=== PATIENT | female | born 1975 | race Caucasian/White ===

== ENCOUNTER 2017-08-30 13:27 | Emergency (ER) | payer OTHER ==
[2017-08-30 13:44] VITALS: BP 141/87; TEMP 98.5
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
[2017-08-30 15:11] VITALS: O2SAT 98
== END 2017-08-30 15:11 | disposition home or self-care (01) ==
LOC: ER 13:27
DX: S16.1XXA Strain of muscle, fascia and tendon at neck level, initial encounter (principal); I10 Essential (primary) hypertension; V43.52XA Car driver injured in collision with other type car in traffic accident, initial encounter; Y92.524 Gas station as the place of occurrence of the external cause

== ENCOUNTER 2018-05-27 17:25 | Emergency (ER) | payer SELFPAY ==
[2018-05-27] MEDS ORDERED: BENZONATATE PERLES 100 MG CAP PO ONE (18:25)
--- NOTE | 2018-05-27 18:30 | RAD ---
EXAM:Chest,2 Views CLINICAL INDICATION: Shortness of breath COMPARISON: There is no previous study for comparison. FINDINGS:Two views of the chest were obtained. The heart size is normal. The pulmonary vascularity is unremarkable. The lungs are clear. There is no consolidation, infiltrate, pleural effusion, or pneumothorax. IMPRESSION: No evidence of active pulmonary disease. Electronically signed by: Lyndon Avila MD 05/27/2018 6:28 PM [facility]
[2018-05-27] MEDS ORDERED: AMOXICILLIN & POT CLAVULANATE 875 MG TAB PO ONE (18:37)
[2018-05-27 18:43] VITALS: BP 126/85; TEMP 100.3; O2SAT 98
[2018-05-27] MEDS ORDERED: predniSONE 20 MG TAB PO ONE (19:06)
--- NOTE | 2018-05-27 19:09 | ED.PDOC ---
History of Present Illness - General Chief Complaint: General Stated Complaint: sore throat Time Seen by Provider: 05/27/18 17:45 Source: patient Exam Limitations: no limitations - History of Present Illness Initial Comments: Patient presents with fever, cough, and sore throat for 5 days. She is on Tamiflu for influenza A and B. She said that her throat has become increasingly sore and swollen. She has had bleeding from her throat and thinks she may have seen some blood in her urine. Cough is intermittent and occasionally productive of clear sputum. No other complaints. Timing/Duration: other - 5 days Severity: moderate Improving Factors: nothing Worsening Factors: eating Associated Symptoms: other - as in HPI Allergies/Adverse Reactions: Allergies Codeine Allergy (Verified 05/27/18 17:33) Home Medications: Ambulatory Orders Amoxicillin & Pot Clavulanate [Augmentin Tab] 875 mg PO BID #13 tab 05/27/18 Benzonatate Perles [Tessalon Perles] 100 mg PO Q6HRS PRN #20 cap 05/27/18 Metoprolol Succinate [Toprol Xl] 50 mg PO DAILY 05/27/18 Oseltamivir Capsule [Tamiflu] 75 mg PO BID 05/27/18 Prednisone [Deltasone] 20 mg PO DAILY #4 tab 05/27/18 Review of Systems - Review of Systems Constitutional: States: see HPI EENTM: States: see HPI Respiratory: States: see HPI Cardiology: States: no symptoms reported Gastrointestinal/Abdominal: States: no symptoms reported Genitourinary: States: no symptoms reported Musculoskeletal: States: no symptoms reported Skin: States: no symptoms reported Neurological: States: no symptoms reported Endocrine: States: no symptoms reported Hematologic/Lymphatic: States: no symptoms reported Past Medical History (General) - Patient Medical History Hx Stroke: No Hx Asthma: No Hx Congestive Heart Failure: No Hx Hypertension: Yes Hx Diabetes: No Surgical History: appendectomy, other - Vaccination History Hx Influenza Vaccination: Yes - 2016 Hx Pneumococcal Vaccination: Yes - 2014 - Social History Hx Tobacco Use: No - Female History Patient : No Family Medical History - Family History Mother Living Status: Age at (years of age): 42 Cause of : Overdose Physical Exam - Physical Exam General Appearance: Alert Eye Exam: bilateral normal Ears, Nose, Throat: pharyngeal erythema - The uvula is blood colored and the op is severely erythmatic. Neck: non-tender, full range of motion, supple, lymphadenopathy (L) Respiratory: lungs clear, normal breath sounds Cardiovascular/Chest: normal peripheral pulses, regular rate, rhythm Gastrointestinal/Abdominal: normal bowel sounds, non tender, soft Skin Exam: normal color Progress - Progress Progress: 05/27/18 19:10 Rapid strep negative. CXR unremarkable. UA showed bacteria, probably a contaminant. Patient given benzotanate 200 mg po x one, Augmentin 875 mg po x one, and prednisone 20 mg po x one in the E.D. RX for Augmentin, benzotanate, and prednisone given. Care instructions given. E.R. warnings given. Questions w ere elicited and answered. Patient voiced understanding and agreement with the plan. Departure - Departure Clinical Impression: Influenza, Sore throat and laryngitis Disposition: Discharge to Home or Self Care Condition: Good Departure Forms: ED Discharge - Pt. Copy, Patient Portal Self Enrollment Diet: resume usual diet Activity: increase activity as tolerated Referrals: MAXIMINO COSBY [Primary Care Provider] - 1-2 Weeks Prescriptions: Benzonatate Perles [Tessalon Perles] 100 mg PO Q6HRS PRN #20 cap PRN Reason: Cough Amoxicillin & Pot Clavulanate [Augmentin Tab] 875 mg PO BID #13 tab Prednisone [Deltasone] 20 mg PO DAILY #4 tab Home Medications: Ambulatory Orders Amoxicillin & Pot Clavulanate [Augmentin Tab] 875 mg PO BID #13 tab 05/27/18 Benzonatate Perles [Tessalon Perles] 100 mg PO Q6HRS PRN #20 cap 05/27/18 Metoprolol Succinate [Toprol Xl] 50 mg PO DAILY 05/27/18 Oseltamivir Capsule [Tamiflu] 75 mg PO BID 05/27/18 Prednisone [Deltasone] 20 mg PO DAILY #4 tab 05/27/18 Additional Instructions: Increase oral fluids. Take medications as prescribed. Tylenol for pain or fever control. Return to the E.R. or your primary doctor if symptoms worsen.
[2018-05-27] MEDS ORDERED: LIDOCAINE HCL 2% (MOUTH-THROAT) 15 ML UD ONE (19:19)
[2018-05-27] MEDS ORDERED: LIDOCAINE HCL 2% (MOUTH-THROAT) 15 ML UD MT ONE (19:20)
== END 2018-05-27 19:25 | disposition home or self-care (01) ==
LOC: ER 17:25
DX: J11.1 Influenza due to unidentified influenza virus with other respiratory manifestations (principal); J02.9 Acute pharyngitis, unspecified; J04.0 Acute laryngitis; I10 Essential (primary) hypertension; Z88.5 Allergy status to narcotic agent
CPT/HCPCS: 71046; 81001; 87070; 87880; J7512

== ENCOUNTER 2018-05-29 00:19 | Emergency (ER) | payer SELFPAY ==
[2018-05-29 00:53] VITALS: TEMP 98; O2SAT 98
[2018-05-29] MEDS ORDERED: IPRATROPIUM/ALBUTEROL 3 ML VIAL NEB ONE (00:55)
--- NOTE | 2018-05-29 01:01 | ED.PDOC ---
History of Present Illness - General Chief Complaint: Respiratory Problem Stated Complaint: feeling short of breath, has flu Time Seen by Provider: 05/29/18 00:27 Source: patient Exam Limitations: no limitations - History of Present Illness Comments: Miguelina Farah 42 y/o female with flu and upper respiratory symptoms stated that she feels SOB during coughing episodes the last 2 days.She had been on tamiflu,tessalon, prednisone and Augmentin.CXR -no acute findings on her last visit 1 1/2 days ago.Has history of HTN on medications. Timing/Duration: constant, other - 3 days ago Cough Quality/Degree: dry cough Possible Cause: other - see hpi Worsening Factors: nothing Associated Symptoms: shortness of breath Respiratory Risk Factors: exposure to illness, other - see hpi Allergies/Adverse Reactions: Allergies Codeine Allergy (Verified 05/27/18 17:33) Home Medications: Ambulatory Orders Amoxicillin & Pot Clavulanate [Augmentin Tab] 875 mg PO BID #13 tab 05/27/18 Benzonatate Perles [Tessalon Perles] 100 mg PO Q6HRS PRN #20 cap 05/27/18 Metoprolol Succinate [Toprol Xl] 50 mg PO DAILY 05/27/18 Oseltamivir Capsule [Tamiflu] 75 mg PO BID 05/27/18 Prednisone [Deltasone] 20 mg PO DAILY #4 tab 05/27/18 Albuterol Inhaler [Ventolin Hfa Inhaler] 108 mcg IN Q4HR PRN #1 inh 05/29/18 Review of Systems - Review of Systems EENTM: States: see HPI, nose congestion Respiratory: States: see HPI, cough Genitourinary: States: see HPI, dysuria Musculoskeletal: States: no symptoms reported Skin: States: no symptoms reported All other Systems: Reviewed and Negative, No Change from Baseline Past Medical History (General) - Patient Medical History Hx Stroke: No Hx Asthma: No Hx Congestive Heart Failure: No Hx Hypertension: Yes Hx Diabetes: No Surgical History: appendectomy, tonsillectomy, other - BTL - Vaccination History Hx Influenza Vaccination: Yes - 2016 Hx Pneumococcal Vaccination: Yes - 2014 - Social History Hx Tobacco Use: No - Female History Patient : No Family Medical History - Family History Mother Living Status: Age at (years of age): 42 Cause of : Overdose Hx Family Hypertension: Yes - dad Hx Family Diabetes: Yes - several family members Hx Family Cancer: Yes - liver Physical Exam - Physical Exam General Appearance: Alert, Anxious, Comfortable, No apparent distress Eye Exam: bilateral normal ENT Exam: normal ENT inspection, hearing grossly normal, TMs normal, pharynx normal, nasal congestion Neck: supple, normal inspection, trachea midline Respiratory: lungs clear, no respiratory distress, no accessory muscle use, wheezing - mild Cardiovascular/Chest: normal peripheral pulses, regular rate, rhythm, no murmur Gastrointestinal/Abdominal: non tender, soft, no organomegaly Extremity: no pedal edema, no calf tenderness Neurologic: alert, oriented x 3 Skin Exam: normal color, warm/dry Progress - Progress Progress: 05/29/18 01:22 Vital Signs - 8 hr 05/29/18 00:46 Temperature 98.0 F Pulse Rate [ 111 H left] Respiratory 18 Rate Blood Pressure 156/99 [left] O2 Sat by Pulse 98 Oximetry - EKG/XRAY/CT XRAY: chest - no acute findings Departure - Departure Clinical Impression: Influenza with upper respiratory symptoms, Reactive airway disease that is not asthma Time of Disposition: 01:30 Disposition: Discharge to Home or Self Care Condition: Fair Departure Forms: ED Discharge - Pt. Copy, Patient Portal Self Enrollment Referrals: MAXIMINO COSBY [Primary Care Provider] - 1-2 Weeks Prescriptions: RX: Albuterol Inhaler [Ventolin Hfa Inhaler] 108 mcg IN Q4HR PRN #1 inh PRN Reason: Shortness Of Breath/Wheezing Home Medications: Ambulatory Orders Amoxicillin & Pot Clavulanate [Augmentin Tab] 875 mg PO BID #13 tab 05/27/18 Benzonatate Perles [Tessalon Perles] 100 mg PO Q6HRS PRN #20 cap 05/27/18 Metoprolol Succinate [Toprol Xl] 50 mg PO DAILY 05/27/18 Oseltamivir Capsule [Tamiflu] 75 mg PO BID 05/27/18 Prednisone [Deltasone] 20 mg PO DAILY #4 tab 05/27/18 Albuterol Inhaler [Ventolin Hfa Inhaler] 108 mcg IN Q4HR PRN #1 inh 05/29/18 Additional Instructions: Continue with all home medications;Use Nasal Saline rinse each nostril 3 x a day for nasal congestion and drainage until better;follow up with primary md 31 May 2018 for recheck;return to ER as needed
--- NOTE | 2018-05-29 01:19 | RAD ---
EXAM DESCRIPTION: Chest,1 View CLINICAL HISTORY: 42 years Female, cough/sob COMPARISON: Chest x-ray May 27, 2018 FINDINGS: No consolidation. No pneumothorax. No significant pleural effusion. Cardiomediastinal silhouette is unremarkable. Degenerative changes of the spine noted. IMPRESSION: No acute findings. Electronically signed by: Krystian Galloway MD 05/29/2018 1:17 AM [facility]
[2018-05-29] MEDS ORDERED: INSULIN, REG.(HUMAN) 100 U/ML VIAL SUBCU ONE (02:03)
[2018-05-29 02:31] VITALS: BP 152/89
== END 2018-05-29 02:33 | disposition home or self-care (01) ==
LOC: ER 00:19
DX: J11.1 Influenza due to unidentified influenza virus with other respiratory manifestations (principal); J45.909 Unspecified asthma, uncomplicated; R73.9 Hyperglycemia, unspecified; R81 Glycosuria; I10 Essential (primary) hypertension; Z79.899 Other long term (current) drug therapy; Z88.5 Allergy status to narcotic agent
CPT/HCPCS: 71045; 80048; 81001; 94640; J7620

== ENCOUNTER 2020-05-03 22:07 | Emergency (ER) | payer SELFPAY ==
[2020-05-03 22:32] VITALS: TEMP 98.5
--- NOTE | 2020-05-03 23:10 | RAD ---
EXAM DESCRIPTION: Chest,1 View CLINICAL HISTORY: 44 years Female COVID COMPARISON: 05/29/2018. FINDINGS: The study is slightly suboptimal from overlying soft tissues. The cardiomediastinal silhouette appears unremarkable. No consolidating infiltrates or pleural effusions. No pneumothorax. The appearance is similar compared to the prior study. IMPRESSION: No pulmonary opacities identified. Please note that chest radiographs have low sensitivity for subtle groundglass opacities. Electronically signed by: Herman Mon MD 05/03/2020 11:09 PM [facility]
[2020-05-04] MEDS ORDERED: SODIUM CHLORIDE 0.9% 1000ML 1,000 ML IVS ONE (00:31)
--- NOTE | 2020-05-04 00:47 | ED.PDOC ---
History of Present Illness - General Chief Complaint: Respiratory Problem Stated Complaint: SOB Time Seen by Provider: 05/03/20 22:08 Source: patient Exam Limitations: no limitations Additional Information: Patient also admits that she has been off her Metformin for her diabetes for at least 1 month. - History of Present Illness Initial Comments: Patient complains of feeling sick for 10 days. She complains of shortness of breath and increased sleeping. Patient denies a cough. She complains of a runny nose and sore throat. She is also had a low-grade fever. Patient states she felt so bad that she passed out and fell. She does not recall hitting her head. Patient had initial nausea and vomiting which have now Improved with no vomiting and 4 diarrheas in the last 24 hours. She complains of mild chest tightness. She has documented Covid exposure to her granddaughter before onset of symptoms.Patient's reports that she was confused last night. Timing/Duration: other - 10 days Severity: severe Improving Factors: nothing Worsening Factors: nothing Associated Symptoms: chest pain, malaise, nausea/vomiting, shortness of breath Allergies/Adverse Reactions: Allergies Codeine Allergy (Verified 05/27/18 17:33) Home Medications: Ambulatory Orders Amoxicillin & Pot Clavulanate [Augmentin Tab] 875 mg PO BID #13 tab 05/27/18 Benzonatate Perles [Tessalon Perles] 100 mg PO Q6HRS PRN #20 cap 05/27/18 Metoprolol Succinate [Toprol Xl] 50 mg PO DAILY 05/27/18 Oseltamivir Capsule [Tamiflu] 75 mg PO BID 05/27/18 Prednisone [Deltasone] 20 mg PO DAILY #4 tab 05/27/18 Albuterol Inhaler [Ventolin Hfa Inhaler] 108 mcg IN Q4HR PRN #1 inh 05/29/18 Past Medical History (General) - Patient Medical History Hx Seizures: No Hx Stroke: No Hx Dementia: No Hx Asthma: No Hx of COPD: No Hx Cardiac Disorders: No Hx Congestive Heart Failure: No Hx Pacemaker: No Hx Hypertension: Yes Hx Diabetes: Yes Hx Gastroesophageal Reflux: No Hx Renal Disease: No Hx Cancer: No Hx of HIV: No Hx Hepatitis C: No Hx MRSA: Yes MRSA Source:: Skin Surgical History: appendectomy - Vaccination History Hx Tetanus, Diphtheria Vaccination: Yes Hx Influenza Vaccination: No Hx Pneumococcal Vaccination: No - Social History Hx Tobacco Use: No Hx Chewing Tobacco Use: No Hx Alcohol Use: No Hx Substance Use: No Hx Substance Use Treatment: No Hx Depression: No Feels Threatened In Home Enviroment: No Feels Threatened In a Relationship: No Hx Physical Abuse: No Hx Emotional Abuse: No Hx Suspected Abuse: No - Female History Patient is a Female of Child Bearing Age (10 -59 yrs old): Yes Patient : No - Triage Comment ED Triage Comment: The patient was brought into the triage room and placed on the exam bed. She was alert and oriented times 4 but did have obvious shortness of breath but was not in distress. She complained of weakness, body aches, shortness of breath and diarrhea for the past 10 days. She was exposed to family that tested positive for COVID and had been feeling bad within days. She stated that she was tired all the time and did not feel she was getting better. Family Medical History - Family History Mother Living Status: Age at (years of age): 42 Cause of : Overdose Hx Family Hypertension: Yes - dad Hx Family Diabetes: Yes - several family members Hx Family Cancer: Yes - liver Physical Exam - Physical Exam General Appearance: Alert, Ill Appearing - Appears mildly ill. Eye Exam: bilateral normal Ears, Nose, Throat: normal ENT inspection, normal pharynx, other - Moist mucous membranes Neck: non-tender, supple Respiratory: normal breath sounds, no respiratory distress Cardiovascular/Chest: normal peripheral pulses, regular rate, rhythm Gastrointestinal/Abdominal: normal bowel sounds, non tender, soft Back Exam: normal inspection, no CVA tenderness Extremity: normal range of motion, no pedal edema, no calf tenderness Neurologic: school [employer] II-XII nml as tested, no motor/sensory deficits Skin Exam: normal color, warm/dry Lymphatic: no adenopathy Progress - Progress Progress: 05/04/20 00:51 Normal saline 1 L infusion. 05/04/20 01:46 Patient feels much better at this time and desires discharge. Medical decision making: Patient has symptoms that are suggestive of COVID-19 although her test is negative. Is likely she has a falsely negative test. Patient does not have any significant abnormalities of her laboratory work, EKG, cardiac enzymes or D-dimer to suggest acute life-threatening pathology. She will be discharged for follow-up with her primary care doctor and will return if symptoms are worsening. - Results/Orders Results/Orders: Electrocardiogram sinus tachycardia, 122/min. Biatrial enlargement. QRS 72 ms. QTc 430. No acute STT changes. Portable chest x-ray was unremarkable Without acute opacities. Vital Signs - 24 hr 05/03/20 22:16 Temperature 98.5 F Pulse Rate [ 110 H Pulse Ox] Respiratory 20 Rate Blood Pressure 153/109 [Left Arm] O2 Sat by Pulse 97 Oximetry 05/03/20 22:32 IV Care:Saline Lock per Protoc STAT Isolation:Airborne ONCE Telemetry STAT 05/03/20 22:45 Pulse Ox, Continuous Monitoring STAT 05/04/20 00:31 Sodium Chloride 0.9% 1000ML [Ns 1000 ml] 1,000 ml IVS ONCE 05/04/20 00:38 EKG Assessment ONCE 05/04/20 00:45 EKG STAT 05/04/20 22:45 Pulse Ox, Continuous Monitoring STAT 05/05/20 22:45 Pulse Ox, Continuous Monitoring STAT Laboratory Results - last 24 hr 05/03/20 05/03/20 05/03/20 22:05 22:05 22:05 WBC 9.6 RBC 6.00 H Hgb 15.1 Hct 46.3 MCV 77.2 L MCH 25.2 L MCHC 32.6 L RDW 17.0 H Plt Count 349 MPV 8.5 Absolute Neuts (auto) 7.50 H Absolute Lymphs (auto) 1.40 Absolute Monos (auto) 0.50 Absolute Eos (auto) 0.20 Absolute Basos (auto) 0.10 Neutrophils % 77.7 Lymphocytes % 14.7 L Monocytes % 5.0 Eosinophils % 1.8 Basophils % 0.8 PTT (SP) 24.3 D-Dimer, Quantitative < 131.0 L Sodium 134 L Potassium 4.2 Chloride 100 L Carbon Dioxide 24 Anion Gap 14.2 BUN 17 Creatinine 0.93 BUN/Creatinine Ratio 18.3 Random Glucose 192 H Serum Osmolality 275.0 Calcium 9.2 Total Bilirubin < 0.2 L AST 88 H ALT 108 H Alkaline Phosphatase 82 LD Total 194 H Creatine Kinase 83 Troponin I C-Reactive Protein 1.2 H Serum Total Protein 7.2 Albumin 3.5 Globulin 3.7 H Albumin/Globulin Ratio 0.9 L 05/03/20 22:05 WBC RBC Hgb Hct MCV MCH MCHC RDW Plt Count MPV Absolute Neuts (auto) Absolute Lymphs (auto) Absolute Monos (auto) Absolute Eos (auto) Absolute Basos (auto) Neutrophils % Lymphocytes % Monocytes % Eosinophils % Basophils % PTT (SP) D-Dimer, Quantitative Sodium Potassium Chloride Carbon Dioxide Anion Gap BUN Creatinine BUN/Creatinine Ratio Random Glucose Serum Osmolality Calcium Total Bilirubin AST ALT Alkaline Phosphatase LD Total Creatine Kinase Troponin I < 0.02 C-Reactive Protein Serum Total Protein Albumin Globulin Albumin/Globulin Ratio .Rapid Covid test negative. Single view chest x-ray negative. Departure - Departure Clinical Impression: General weakness, COVID-19 ICD-10 Supporting Text: Negative COVID-19 testing but symptoms are suggestive of this illness. Time of Disposition: 01:47 Disposition: Discharge to Home or Self Care Condition: Good Departure Forms: ED Discharge - Pt. Copy, Patient Portal Self Enrollment Diet: resume usual diet Referrals: MAXIMINO COSBY [Primary Care Provider] - 1-2 Weeks Home Medications: Ambulatory Orders Amoxicillin & Pot Clavulanate [Augmentin Tab] 875 mg PO BID #13 tab 05/27/18 Benzonatate Perles [Tessalon Perles] 100 mg PO Q6HRS PRN #20 cap 05/27/18 Metoprolol Succinate [Toprol Xl] 50 mg PO DAILY 05/27/18 Oseltamivir Capsule [Tamiflu] 75 mg PO BID 05/27/18 Prednisone [Deltasone] 20 mg PO DAILY #4 tab 05/27/18 Albuterol Inhaler [Ventolin Hfa Inhaler] 108 mcg IN Q4HR PRN #1 inh 05/29/18 Additional Instructions: Your Covid test is negative but your symptoms are suggestive of COVID-19 with a falsely negative test. Isolate yourself from others until you are free of all symptoms for at least 4 days. Force fluids. Avoid prolonged standing. Do not work for 1 week or at least until free of symptoms for 4 days. If you develop worsening shortness of breath, recurrent passing out, or generally feel much worse then return to the emergency department. Use Tylenol or ibuprofen for Or fever aches.
[2020-05-04 01:02] VITALS: BP 144/88; O2SAT 94
== END 2020-05-04 01:57 | disposition home or self-care (01) ==
LOC: ER 22:07
DX: U07.1 COVID-19 (principal); R00.0 Tachycardia, unspecified; R55 Syncope and collapse; R07.89 Other chest pain; I10 Essential (primary) hypertension; E11.9 Type 2 diabetes mellitus without complications; Z79.899 Other long term (current) drug therapy; Z88.5 Allergy status to narcotic agent
CPT/HCPCS: 36415; 71045; 80053; 82550; 83615; 84484; 85025; 85379; 85730; 86140; 87635; 93005; J7030